=== PATIENT | male | born 1975 | race Two or more races ===

== ENCOUNTER → 2025-04-08 | Outpatient (CLI) | payer OTHER, SELFPAY ==
[2025-04-08 14:29] LABS: Basophils # (Auto) 0.0 Thou/mm3 (0.0-0.2); Basophils % (Auto) 0 % (0-2.5); Eosinophils # (Auto) 0.1 Thou/mm3 (0.0-0.5); Eosinophils % (Auto) 2 % (0-10); Hematocrit 47.6 % (41.0-53.0); Hemoglobin 16.4 g/dL (13.5-16.0); Immature Granulocytes Auto 0.01 Thou/mm3 (0.00-0.00); Lymphocytes # (Auto) 2.8 Thou/mm3 (1.0-4.8); Lymphocytes % (Auto) 38 % (10-50); Mean Corpuscular HGB Conc 34.5 g/dl (31.0-37.0); Mean Corpuscular Hemoglobin 29.2 pg (25.0-35.0); Mean Corpuscular Volume 85 fL (80-100); Monocytes # (Auto) 0.7 Thou/mm3 (0.0-0.8); Monocytes % (Auto) 9 % (0-12); Neutrophils # (Auto) 3.7 Thou/mm3 (1.8-7.7); Neutrophils % (Auto) 51 % (37-80); Nucleated Red Blood Cell # 0.00 Thou/mm3 (0.00-0.00); Nucleated Red Blood Cell % 0 /100 WBC (0); Platelet Count 241 Thou/mm3 (140-440); RDW Standard Deviation 41.6 fL (35.1-43.9); Red Blood Count 5.62 Miln/mm3 (4.50-5.90); White Blood Count 7.4 Thou/mm3 (3.8-10.6)
[2025-04-08 14:47] LABS: Glucose Estimated Average 134 mg/dL (80-131); Hemoglobin A1C 6.3 % Hgb (4.8-6.0)
[2025-04-08 14:48] LABS: Anion Gap 9 (7-16); BUN/Creatinine Ratio 14 Ratio (12-20); Blood Urea Nitrogen 14 mg/dL (9-23); Calcium 9.1 mg/dL (8.3-10.6); Carbon Dioxide 29.4 mMol/L (20.0-31.0); Chloride 103 mMol/L (98-107); Creatinine (Component) 1.0 mg/dL (0.6-1.3); Glucose 96 mg/dL (74-106); Osmolality,Calculated 281 (275-295); Potassium 4.1 mMol/L (3.4-5.1); Sodium 141 mMol/L (136-145); eGFR > 60 See Note
--- NOTE | 2025-04-08 14:58 | EKG_ITS ---
[facility] Test Date: 2025-04-08 Pat Name: JODEE VELASCO Department: Room: - Gender: Male Repossessor: MUSHTAQ : 1975 Requested By: Brandt Sal Order Number: [id number] Reading MD: Brandt Sal Measurements Intervals [place] Rate: 67 P: 4 IN: 165 QRS: -22 QRSD: 83 T: 3 QT: 382 QTc: 406 Interpretive Statements SINUS RHYTHM BORDERLINE LEFT AXIS DEVIATION [QRS AXIS < -20] Compared to ECG 11/04/2023 15:18:07 No significant changes /[id number]
== END | disposition home or self-care (01) ==
LOC: COPL 13:56
PROVIDERS: Referring Provider Orthopaedic Surgery Orthopaedic Trauma; Visit Provider Orthopaedic Surgery Orthopaedic Trauma
DX: Z01.812 Encounter for preprocedural laboratory examination (principal); Z01.818 Encounter for other preprocedural examination; Z01.810 Encounter for preprocedural cardiovascular examination
CPT/HCPCS: 36415; 80048; 83036; 85025; 93005